=== PATIENT | male | born 1965 | race Caucasian/White ===

== ENCOUNTER 2024-10-12 10:48 | Emergency (ER) | payer BC ==
[2024-10-12] MEDS ORDERED: Nitroglycerin 0.4 MG TAB 1 EACH ONE (11:22)
[2024-10-12] MEDS ORDERED: Aspirin Chewable 81 MG TAB ONE (11:23)
[2024-10-12 11:26] LABS: #Basophils 0.1 thou/uL (0.0-0.2); #Eosinophils 0.1 thou/uL (0.0-0.7); #Lymphocytes 1.6 thou/uL (1.20-3.40); #Monocytes 0.6 thou/uL (0.11-0.59); #Neutrophils 3.2 thou/uL (1.40-6.50); %Basophils 2.3 % (0.0-1.0); %Eosinophils 2.4 % (0.0-10.0); %Lymphocytes 28.8 % (21.0-51.0); %Monocytes 10.3 % (0.0-10.0); %Neutrophils 56.2 % (42.0-75.0); Hematocrit 46.3 % (42.0-52.0); Hemoglobin 15.4 g/dL (14.0-18.0); Mean Corpuscular Hemoglobin 29.7 pg (27.0-31.0); Mean Corpuscular Volume 89.4 fl (78.0-98.0); Platelet Count 251 10x3/uL (130-400); Red Blood Cell (RBC) Count 5.18 mill/uL (4.70-6.10); White Blood Cell (WBC) Count 5.6 10x3/uL (4.8-10.8)
[2024-10-12 11:39] LABS: ALT (SGPT) 76 U/L (Less than 45); AST (SGOT) 45 U/L (11-34); Albumin 4.5 g/dL (3.1-4.5); Alkaline Phosphatase 102 U/L (40-110); Anion Gap 15 mmol/L (10-20); BUN (Urea Nitrogen) 16 mg/dL (8.4-25.7); Bilirubin, Total 0.6 mg/dL (0.3-1.2); Calc. Creatinine Clearance 0 mL/min (70-130); Calcium 9.4 mg/dL (7.8-10.44); Carbon Dioxide 25 mmol/L (22-29); Chloride 105 mmol/L (98-107); Globulin 2.6 g/dL (2.4-3.5); Glucose 105 mg/dL (70-105); Lipase 26 U/L (8-78); Potassium 4.4 mmol/L (3.5-5.1); Sodium 141 mmol/L (136-145)
[2024-10-12 11:42] LABS: Troponin I Less than 0.010 ng/mL (< 0.028)
[2024-10-12 14:35] LABS: Troponin I Less than 0.010 ng/mL (< 0.028)
[2024-10-12 18:03] LABS: Troponin I Less than 0.010 ng/mL (< 0.028)
== END 2024-10-12 18:47 | disposition short-term general hospital (02) ==
LOC: MADERS 10:48
DX: R07.2 Precordial pain (principal); R74.01 Elevation of levels of liver transaminase levels; I25.10 Atherosclerotic heart disease of native coronary artery without angina pectoris; K21.9 Gastro-esophageal reflux disease without esophagitis; I10 Essential (primary) hypertension; E78.5 Hyperlipidemia, unspecified; Z79.899 Other long term (current) drug therapy; Z79.82 Long term (current) use of aspirin
CPT/HCPCS: 71045; 80053; 83690; 84484; 85025; 93005; 94760